=== PATIENT | male | born 1930 | race Caucasian/White ===

== ENCOUNTER → 2020-05-11 | Outpatient (CLI) | payer MEDICARE ==
[~2020-05-11] VITALS: Ht 172.7 cm; Wt 72.7 kg
[~2020-05-11] MED LIST: ADULT LOW DOSE81 MG PO; ALTACE5 MG PO; AMARYL2 MG PO; ASPIR 8181 MG PO; CARVEDILOL3.125 MG PO; ELEMENTAL CALC600 MG PO; GLUCOPHAGE500 MG PO; KLOR-CON 1010 MEQ PO; LASIX 20 MG TAB20 MG PO; LASIX 40 MG TAB40 M2 PO; NEURONTIN 300300 M1 PO; NIASPAN 500 MG500 M1 PO; OMEPRAZOLE20 M2 PO; PRADAXA150 MG PO; PRADAXA75 MG PO; SYSTANE 0.3-0.1 EACH OPHTHALMIC; TOPAMAX 100 MG100 MG PO; TRIAMCINOLONE A80 G2 TOP; VAN500AD IVPB; VICODIN 5-5001 EACH PO; VITAMIN D1000 UNI1 PO; XALATAN2.5 ML OPHTHALMIC; ZOCOR 20 MG TAB20 M1 PO
[2020-05-11 11:20] LABS: HEMATOCRIT 27.7 % (42.0-52.0); HEMOGLOBIN 9.5 gm/dL (14.0-18.0); MCH 35.1 pg (26.0-34.0); MCHC 34.3 g/dL (28.0-37.0); MCV 102.4 fL (80.0-100.0); MPV 8.9 fl. (7.2-11.1); RBC 2.71 mil/uL (4.50-6.00); RDW-CV 14.4 % (10.5-14.5); WBC 4.6 thou/uL (4.0-11.0)
[2020-05-11 11:26] VITALS: BP 112/65
[2020-05-11 11:34] LABS: CALCIUM 8.4 mg/dL (8.5-10.1); POTASSIUM 4.2 mmol/L (3.5-5.1)
[2020-05-11 11:37] LABS: APTT 34.2 Seconds (25.0-31.3); INR 1.3; PROTIME 13.6 Seconds (9.20-11.50)
[2020-05-11 11:39] LABS: ALBUMIN 3.9 g/dL (3.4-5.0); TOTAL BILIRUBIN 0.4 mg/dL (<0.1-1.0); TOTAL PROTEIN 6.7 g/dL (6.4-8.2)
[2020-05-11 15:02] VITALS: BP 132/62
--- NOTE | 2020-05-11 15:05 | EKG ---
[place] [address] ELECTROCARDIOGRAM REPORT Name: ELADIO DESIR Room: [facility]#: [id number] Admission: 05/11/20 Attend Phys: Rao Haile MD Discharge: Date of : [birth year] Date of Service: 05/11/20 1211 Report #: [id number] THIS REPORT FOR: //name// [facility] Test Date: 2020-05-11 Test Time: 12:11:29 Pat Name: ELADIO DESIR Department: Room: Gender: Production Operator: : 1930 Requested By: Rao Haile Order Number: [id number] Gabriella MD: Rao Haile Measurements Intervals [place] Rate: 65 P: -60 ND: 374 QRS: -89 QRSD: 190 T: 98 QT: 490 QTc: 510 Interpretive Statements Ventricular-paced complexes with pvc's No further analysis attempted due to paced rhythm No previous ECG available for comparison Electronically Signed On 05-11-2020 15:05:13 CDT by Rao Haile [email or web address] <ELECTRONICALLY SIGNED> By: Rao Haile MD, [facility] 05/11/20 1505 121 121 Rao Haile MD, [facility] /EPI
[2020-05-11 15:18] VITALS: BP 124/71
[2020-05-11 15:33] VITALS: BP 119/58
[2020-05-11 15:50] VITALS: BP 122/63
--- NOTE | 2020-05-11 16:41 | EKG ---
[place] [address] ELECTROCARDIOGRAM REPORT Name: ELADIO DESIR Room: [facility]#: [id number] Admission: 05/11/20 Attend Phys: Rao Haile MD Discharge: Date of : [birth year] Date of Service: 05/11/20 1601 Report #: [id number] THIS REPORT FOR: //name// [facility] Test Date: 2020-05-11 Test Time: 16:01:22 Pat Name: ELADIO DESIR Department: Room: Gender: Salvage Laborer: : 1930 Requested By: Rao Haile Order Number: [id number] Reading MD: Rao Haile Measurements Intervals [place] Rate: 60 P: 0 MN: 305 QRS: -79 QRSD: 208 T: 84 QT: 534 QTc: 534 Interpretive Statements Ventricular-paced rhythm No further analysis attempted due to paced rhythm Compared to ECG 05/11/2020 12:11:29 No significant changes Electronically Signed On 05-11-2020 16:40:47 CDT by Rao Haile [email or web address] <ELECTRONICALLY SIGNED> By: Roa Haile MD, FAC 05/11/20 1640 1601 1601 Rao Haile MD, [facility] /EPI
--- NOTE | 2020-05-12 11:33 | CARD ---
[address] [address] CARDIAC CATH REPORT Name: ELADIO DESIR Room: [facility]#: [id number] Admission: 05/11/20 Attend Phys: Rao Haile MD, F Discharge: Date of : [birth year] Report #: [id number] THIS REPORT FOR: //name// cc: Yang Bear MD, Michael B. MD ~ APPROVED REPORT Study performed: 05/11/2020 13:11:48 Patient Status: Out-Patient Room #: Event Personnel: Roa Haile Press Offbearer, Marisa Ford RN RN, Corrie Kilgore RTR Scrub, Nayla Jorge RTR Monitor Exam: Generator Change for a Single Chamber Permanent Pacemaker Indications: Sick Sinus Syndrome/Tachy Antonio Syndrome The patient is a 89 year-old male with a history of Sick Sinus Syndrome. Conscious Sedation Start time: 13:51 End Time: 14:35 Fentanyl 25 mcg Versed 1 mg Implanted Devices: single chamber mri compatible Medtronic pacemaker generator Explanted Devices: Medtronic pacemaker generator which was at elective replacement time. Procedure The patient underwent informed consent. We discussed the details of the procedure including the risks, which include, but not limited to bleeding, infection, vascular damage, cardiac perforation, and pneumothorax. He understood these risks and was willing to proceed. As such, he was brought to the EP/Cardiac Catheterization laboratory in a fasting and sedated state and prepped and draped in a The patient underwent conscious sedation, with no related complications. The patient was brought to the EP/Cardiac Catheterization laboratory and the left chest and shoulder were prepped and draped in a sterile manner. The left subclavian region was infiltrated with 2% Lidocaine subcutaneous anesthesia. A transverse incision was made in the left upper chest cavity. Capturing and [place] [address] CARDIAC CATH REPORT Name: ELADIO DESIR Room: [facility]#: [id number] Admission: 05/11/20 Attend Phys: Rao Haile MD, F Discharge: Date of : [birth year] Report #: [id number] The patient underwent informed consent. We discussed the details of the procedure including the risks, which include, but not limited to bleeding, infection, vascular damage, cardiac perforation, and pneumothorax. He understood these risks and was willing to proceed. As such, he was brought to the EP/ Catheterization laboratory in a fasting and sedated state and prepped and draped in a sterile fashion, received IV antibiotics prior to initiation of the procedure. The patient underwent conscious sedation, with no related complications. During this case, fluoroscopy and no contrast were used for imaging. The left subclavian region was infiltrated with 2% lidocaine with epinephrine subcutaneous anesthesia. A transverse incision was made in the left upper chest cavity. The old generator was removed. The new generator was connected to the lead. Capturing and sensing thresholds were verified. The pocket was irrigated with ancef antibiotic and d stat flowable solution was infused into the pacemaker pocket since the patient had been on Pradaxa. The new generator was placed into the pocket. The pocket was sutured closed using 0 vicryl. The subcutaneous layer was sutured using 2.0 vicryl. The skin was sutured using 4.0 vicryl. Dermabond was applied to site. Electrode Parameters R Wave: 4.4 mv Ventricular Threshold: 0.75 v @ 0.4 ms Ventricular Resistance: 399 ohm Generator Change The lead was attached to the appropriate receptacle on the new pulse generator and setscrews firmly tightened to insure adequate contact and stability. Complications The patient tolerated the procedure well and there were no complications associated with the procedure. Findings Specimens Removed: Yes Medtronic pacemaker generator Estimated Blood Loss: 5 ml Conclusion successful replacement of a single chamber pacemaker generator. <ELECTRONICALLY SIGNED> By: Rao Haile MD, [facility] 05/12/20 1133 1133 [id number] Haile MD, FACC /INF
== END ==
LOC: M.CL 10:11
PROVIDERS: ATTEND Internal Medicine Cardiovascular Disease
DX: I49.5 Sick sinus syndrome (principal); E11.9 Type 2 diabetes mellitus without complications; I48.21 Permanent atrial fibrillation; I42.0 Dilated cardiomyopathy; R60.1 Generalized edema; I11.0 Hypertensive heart disease with heart failure; I50.9 Heart failure, unspecified; E78.5 Hyperlipidemia, unspecified; H40.9 Unspecified glaucoma; Z79.84 Long term (current) use of oral hypoglycemic drugs; Z79.82 Long term (current) use of aspirin; Z79.899 Other long term (current) drug therapy; Z98.890 Other specified postprocedural states

== ENCOUNTER 2020-05-17 13:41 | Emergency (ER) | payer MEDICARE ==
[~2020-05-17] VITALS: Ht 167.6 cm; Wt 70.8 kg
[2020-05-17 15:55] VITALS: BP 104/47
== END 2020-05-17 15:56 | disposition home or self-care (01) ==
LOC: M.ERS 13:41
DX: Z48.01 Encounter for change or removal of surgical wound dressing (principal); I50.9 Heart failure, unspecified; I11.0 Hypertensive heart disease with heart failure; I48.91 Unspecified atrial fibrillation; E78.5 Hyperlipidemia, unspecified; E11.9 Type 2 diabetes mellitus without complications; Z95.0 Presence of cardiac pacemaker; Z88.2 Allergy status to sulfonamides